=== PATIENT | female | born 1985 | race Caucasian/White ===

== ENCOUNTER 2018-09-25 09:29 | Emergency (ER) | payer OTHER ==
[2018-09-25 09:45] VITALS: BP 122/75
--- NOTE | 2018-09-25 09:46 | UC ---
FLU HPI - HPI Summary HPI Summary: Pt here with her daughter. Daughter was evaluated and diagnosed with influenza. Pt has no complaints, but requesting Tamiflu. No fever, hcills. no congested. Pt is not immunocompromised. Pt did receive flu vaccine this year No medications reviewed - History of Current Complaint Chief Complaint: UCGeneralIllness Stated Complaint: NAUSEA Time Seen by Provider: 09/25/18 09:31 Hx Obtained From: Patient Hx Last Menstrual Period: 09/26/2014 Pain Intensity: 0 - Allergy/Home Medications Allergies/Adverse Reactions: Allergies Allergy/AdvReac Type Severity Reaction Status Date / Time No Known Allergies Allergy Verified 09/25/18 09:40 Home Medications: Home Medications Buspirone HCl 5 mg PO DAILY 09/25/18 [History Confirmed 09/25/18] PMH/Surg Hx/FS Hx/Imm Hx Previously Healthy: Yes - Surgical History Surgical History: Yes Surgery Procedure, Year, and Place: c sectionx1 - Family History Known Family History: Positive: Non-Contributory - Social History Lives: With Family Alcohol Use: None Substance Use Type: None Smoking Status (MU): Never Smoked Tobacco Review of Systems All Other Systems Reviewed And Are Negative: Yes Constitutional: Positive: Negative Skin: Positive: Negative Eyes: Positive: Negative ENT: Positive: Negative Respiratory: Positive: Negative Cardiovascular: Positive: Negative Gastrointestinal: Positive: Negative Motor: Positive: Negative Neurovascular: Positive: Negative Physical Exam - Summary Physical Exam Summary: Vital Signs Reviewed: Yes A+Ox3, no distress Eyes: Conjunctiva Clear, BLANCO. EOM intact and full ENT: Hearing grossly normal TM x 2 clear, mmoist, uvula midline, no exudate, no erythema Neck: Positive: Supple Respiratory: Positive: No respiratory distress, No accessory muscle use + CTA throughout no w/r Cardiovascular: RRR nl s1, s2 no m/r CBT <2 sec abd soft + BS nt/nd no guarding, no distension Musculoskeletal Exam: SWENSON x 4 without difficulty Strength Intact, ROM Intact Neurological: Positive: Alert, + sensation throughout Psychological: Positive: Normal Response To Family Skin: Positive: no rash, no ecchymosis Triage Information Reviewed: Yes Vital Signs: Initial Vital Signs Temp 98 F 09/25/18 09:41 Pulse 64 09/25/18 09:41 Resp 18 09/25/18 09:41 BP 122/75 09/25/18 09:41 Pulse Ox 97 09/25/18 09:41 Flu Course/Dx - Course Course Of Treatment: Pt's daughter dx today with influenze after 18 hours sx. pt requesting Tamiflu prophylaxis. pt without sx - Differential Dx/Diagnosis Provider Diagnosis: Exposure to influenza Discharge - Sign-Out/Discharge Documenting (check all that apply): Patient Departure All imaging exams completed and their final reports reviewed: No Studies - Discharge Plan Condition: Stable Disposition: HOME Prescriptions: Oseltamivir CAP* [Tamiflu CAP*] 75 mg PO DAILY #10 cap Patient Education Materials: Influenza (ED) Forms: *Work Release Referrals: No Primary Care Phys,NOPCP [Medical Doctor] - Additional Instructions: As discussed, you have been prescribed Tamiflu as prophylaxis, prevent of flu. Flu is contagious and spread by oral secretions - Stay well hydrated. Drink plenty of non-alcoholic, non-caffinated beverages. - Take Tamiflu daily as prescribed as prophylaxis of influenza - Alternate ibuprofen (Advil, Motrin) 600mg and Tylenol 1000mg every 3 hours for pain or fever. Take with food. Do NOT take for more than 4-5 days. - These infections are spread by secretions - do NOT share eating or drinking utensils - clean items you share with other people such as cell phones, computer mouse, TV remote, computer tablets,etc. - get plenty of restful sleep - humidify the air in the room where you sleep - boil water, run a hot steam shower, vaporizer, cups of water by heat register - okay to take over the counter decongestant and cough medication - contact your doctor or return with questions or concerns - Billing Disposition and Condition Condition: STABLE Disposition: Home
== END 2018-09-25 10:04 | disposition home or self-care (01) ==
LOC: UCEAST 09:29
DX: R11.0 Nausea (principal); Z20.828 Contact with and (suspected) exposure to other viral communicable diseases
CPT/HCPCS: 99202; G0463

== ENCOUNTER 2019-06-27 10:14 | Emergency (ER) | payer OTHER ==
[2019-06-27 10:33] VITALS: BP 108/73
--- NOTE | 2019-06-27 11:51 | UC ---
Complaint Female HPI - HPI Summary HPI Summary: Patient is a 34yo female presenting with c/o "itching possible yeast infection or BV" x1 week. Patient states she has a history of both infections and states she gets them sometimes after going in hot tubs, which she went into last week. Patient states that she has increased malodorous discharge. Described it as clear. Also notes vaginal itching. Denies urinary symptoms. Denies fever and chills. Denies abd. pain. Denies abnormal bleeding. States she is not concerned for STIs and would not like screening done today. She states she has tried monistat otc twice this past week without relief. - History Of Current Complaint Chief Complaint: UCGU Stated Complaint: YEAST INFECTION Hx Obtained From: Patient Hx Last Menstrual Period: no period Onset/Duration: Gradual Onset, Lasting Days Timing: Constant Severity Currently: Mild Pain Intensity: 1 Pain Scale Used: 0-10 Numeric - Allergies/Home Medications Allergies/Adverse Reactions: Allergies Allergy/AdvReac Type Severity Reaction Status Date / Time No Known Allergies Allergy Verified 06/27/19 10:28 Home Medications: Home Medications Mv-Min/Iron/Folic/Calcium/Vitk [Multivitamin Women] 1 tab PO DAILY 06/27/19 [ History Confirmed 06/27/19] PMH/Surg Hx/FS Hx/Imm Hx Previously Healthy: Yes - Surgical History Surgical History: Yes Surgery Procedure, Year, and Place: c sectionx1 - Family History Known Family History: Positive: Non-Contributory - Social History Alcohol Use: None Substance Use Type: None Smoking Status (MU): Never Smoked Tobacco Review of Systems All Other Systems Reviewed And Are Negative: No Constitutional: Positive: Negative. Negative: Fever, Chills Respiratory: Positive: Negative Cardiovascular: Positive: Negative Gastrointestinal: Positive: Negative. Negative: Abdominal Pain, Vomiting, Nausea Genitourinary: Positive: Vaginal/Penile Itching, Vaginal/Penile Discharge - clear and malodorous. Negative: Dysuria, Hematuria, Vaginal/Penile Burning, Abnormal Bleeding Musculoskeletal: Positive: Negative Neurological: Positive: Negative Physical Exam Triage Information Reviewed: Yes Appearance: Well-Appearing, No Pain Distress, Well-Nourished Vital Signs: Initial Vital Signs Temp 98.4 F 06/27/19 10:30 Pulse 54 06/27/19 10:30 Resp 16 06/27/19 10:30 BP 108/73 06/27/19 10:30 Pulse Ox 99 06/27/19 10:30 Vital Signs Reviewed: Yes Eyes: Positive: Conjunctiva Clear ENT: Positive: Hearing grossly normal Neck: Positive: Supple Respiratory: Positive: No respiratory distress Neurological: Positive: Alert Psychological: Positive: Age Appropriate Behavior Complaint Female Dx - Course Course Of Treatment: Patient declined STI testing and pelvic exam today. I treated with diflucan and flagyl for possible yeast infection and bacterial vaginosis. Instructed patient to follow up with [facility] or pcp if symptoms do not resolve within 7 days. Patient voiced understanding and agreed with treatment plan. - Differential Dx/Diagnosis Differential Diagnosis/HQI/PQRI: Sexually Transmitted Disease, Other - yeast infection, BV Provider Diagnosis: Vaginal itching Discharge ED - Sign-Out/Discharge Documenting (check all that apply): Patient Departure All imaging exams completed and their final reports reviewed: No Studies - Discharge Plan Condition: Stable Disposition: HOME Prescriptions: Fluconazole 150 MG TAB* [Diflucan 150 MG TAB*] 300 mg PO SEE INSTRUCTIONS #2 tablet metroNIDAZOLE * [Flagyl] 500 mg PO BID #14 tablet Patient Education Materials: Yeast Infection (ED), Bacterial Vaginosis (ED) Referrals: Janie Quiles [Primary Care Provider] - If Needed Additional Instructions: Take Diflucan as prescribed for treatment of possible yeast infection. Take Flagyl as prescribed for treatment of possible bacterial source of symptoms. Do not consume alcohol of any kind while taking this medication, as it may cause severe stomach upset. Follow up with your PCP or the [facility] if symptoms do not resolve within 7 days. - Billing Disposition and Condition Condition: STABLE Disposition: Home
== END 2019-06-27 12:08 | disposition home or self-care (01) ==
LOC: UCEAST 10:14
DX: N89.8 Other specified noninflammatory disorders of vagina (principal)
CPT/HCPCS: 99212; G0463